=== PATIENT | male | born 1975 | race Hispanic/Latino ===

== ENCOUNTER 2016-11-05 07:18 | Emergency (ER) | payer BC, OTHER ==
[2016-11-05] MEDS ORDERED: Lidocaine 1% 20 ML MDV ONE (07:35)
[2016-11-05] MEDS ORDERED: Adacel (T-DAP) 0.5 ML VIAL ONE (07:35)
[2016-11-05] MEDS ORDERED: Cephalexin 500 MG CAP ONE (08:24)
[2016-11-05] MEDS ORDERED: Ibuprofen 800 MG TAB ONE (08:24)
[2016-11-05] MEDS ORDERED: Sodium Chloride Irrig Solution 250 ML BOT ONE (08:24)
[2016-11-05] MEDS ORDERED: Triple Antibiotic Oint 1 GM Packet ONE (08:46)
--- NOTE | 2016-11-05 08:59 | ERRECORD ---
[facility] EMERGENCY RECORD HPI LACERATION (08:02 ABUS) CHIEF COMPLAINT: Patient presents for evaluation of laceration to finger, on the left, 0-1.5cm in length, 3rd and 4th. HISTORIAN: History provided by patient, 41 yr old M with finger injury while work (sheet metal fell and hit his fingers giving him a cut). Unsure about tetanus. Can feel his finger and flex and extend it. MECHANISM OF INJURY: Mechanism of injury: Blunt trauma, by direct blow, No alcohol use associated with this incident, No drug use associated with this incident, No domestic violence associated with this incident. LOCATION: Symptoms are localized, most severe to 3rd and 4th fingers. QUALITY: Laceration quality straight, Pain is dull in nature, described as aching. SEVERITY: Currently symptoms are moderate. TIME COURSE: There has been no change in the patient's symptoms over time, are constant. ASSOCIATED WITH: No associated symptoms. EXACERBATED BY: Patient's condition exacerbated by nothing. RELIEVED BY: Patient's condition relieved by nothing. TETANUS: Tetanus status not up to date, tetanus immunization ordered. ROS (08:04 ABUS) CONSTITUTIONAL: Negative constitutional review of systems, Historian denies chills, denies fever. ENT: Negative ears, nose, throat review of systems, Historian denies rhinorrhea, denies sore throat. CARDIOVASCULAR: Negative cardiovascular review of systems, Historian denies chest pain, denies palpitations. RESPIRATORY: Negative respiratory review of systems, Historian denies cough, denies shortness of breath. GI: Negative gastrointestinal review of systems, Historian denies abdominal pain, denies constipation, denies diarrhea, denies nausea, denies vomiting. MUSCULOSKELETAL: Negative musculoskeletal review of systems, Historian denies back pain, denies fall, denies injury, denies neck pain. SKIN: Laceration to the 3rd and 4th finger no active bleeding, No tendon exposure or bone exposure. 3rd finger cut is skin avulsion only. 4th finger laceration extends to dermis., . NEUROLOGIC: Negative neurologic review of systems, Historian denies headache. PAST MEDICAL HISTORY (07:42 JPER) MEDICAL HISTORY: No past medical history, No past medical history. MALE SURGICAL HISTORY: Patient has no surgical history, Patient has no surgical history. &a-1R&a+25V*p+0X*[id number]*c202B*c15G*c2P*p-0X&a-25V&a+1R Name: Preethi Wilder : 1975 M41 MedRec: [id number] AcctNum: [id number] Prepared: SatNov 05, 2016 08:57 by Interface Page 1 of 3 pMD [facility] EMERGENCY RECORD PSYCHIATRIC HISTORY: Notes: DENIES, Notes: DENIES. SOCIAL HISTORY: Social History includes VERIFIED 11-05-16, Patient drinks socially, Patient denies drug use, Patient has no smoking history. KNOWN ALLERGIES No Known Drug Allergies CURRENT MEDICATIONS (07:42 JPER) None VITAL SIGNS (07:40 JPER) VITAL SIGNS: BP: 115/75, Pulse: 67, Resp: 14, Temp: 98 (Oral), O2 sat: 97 on Room Air, Time: 11/05/2016 07:40. PHYSICAL EXAM (08:04 ABUS) CONSTITUTIONAL: Vital signs reviewed, Patient afebrile, Pulse normal, Blood pressure normal, Respiratory rate normal, Patient appears non toxic, Patient appears pain free, Patient alert and oriented to person, place and time. NECK: Neck exam normal, Neck exam included findings of normal range of motion, Trachea midline, no meningeal signs, no cervical adenopathy, no tenderness. RESPIRATORY CHEST: Respiratory and chest exam normal, Respiratory exam included findings of no respiratory distress, Breath sounds clear. CARDIOVASCULAR: Cardiovascular assessment normal, Cardiovascular exam included findings of heart rate regular rate and rhythm, Heart sounds normal. ABDOMEN MALE: Abdominal exam included findings of abdomen nontender, Bowel sounds normal, no distension, no mass, no pulsatile masses, no peritoneal signs, no rigidity, no guarding, no rebound, Rovsing's sign absent. BACK: Back exam normal, Back exam included findings of normal inspection, range of motion normal, no tenderness. NEURO: Neuro exam normal, Neuro exam findings include patient oriented to person, place and time, Speech normal, Gait normal. SKIN: Skin exam included findings of skin warm, dry, and normal in color, no rash, Laceration to the 3rd and 4th finger no active bleeding, No tendon exposure or bone exposure. 3rd finger cut is skin avulsion only. 4th finger laceration extends to dermis., . RADIOLOGYINTERPRETATION (08:18 ABUS) UPPER EXTERMITIES: Radiological interpretation of, the left fingers shows, finger negative, no fractures, no dislocations, no foreign body, no bony lesions, no degenerative joint disease, no soft tissue swelling. CONFIGURATION MANAGEMENT ADMINISTRATOR: Preliminary review of x-rays by, ED Physician, &a-1R&a+25V*p+0X*[id number]*c202B*c15G*c2P*p-0X&a-25V&a+1R Name: Preethi Wilder : 1975 M41 MedRec: [id number] AcctNum: [id number] Prepared: SatNov 05, 2016 08:57 by Interface Page 2 of 3 pMD [facility] EMERGENCY RECORD Radiologist. MEDICATION ADMINISTRATION SUMMARY Drug Name: Keflex, Dose Ordered: 500 mg, Route: Oral, Status: Given, Time: 08:21 11/05/2016, Drug Name: ibuprofen, Dose Ordered: 800 mg, Route: Oral, Status: Given, Time: 08:21 11/05/2016, Drug Name: *Adacel(Tdap Adolesn/Adult)(PF), Dose Ordered: 0.5 mL, Route: Intramuscular, Status: Given, Time: 08:03 11/05/2016, *Additional information available in notes, Detailed record available in Medication Service section. DOCTOR NOTES (08:06 ABUS) TEXT: 41 yr old M with finger injury while work (sheet metal fell and hit his fingers giving him a cut). Unsure about tetanus. Can feel his finger and flex and extend it. Exam: Laceration to the 3rd and 4th finger no active bleeding, No tendon exposure or bone exposure. 3rd finger cut is skin avulsion only. 4th finger laceration extends to dermis. DDX: soft tissue injury, laceration Plan: Digital blocks to the 3rd and 4th fingers. Cleaned with water and scrubed with chlorhexidine, xray to r/o fb present and sutured. Dc on abx, counseling of daily wound care and return precautions with follow up in 5-7 days to have sutures removed. PROBLEM LIST No recorded problems DIAGNOSIS (08:50 ABUS) FINAL: PRIMARY: laceration. PRESCRIPTION (08:49 ABUS) Keflex: CAPSULE : 500 mg : ORAL : Quantity: 1 Unit: cap(s) Route: ORAL Schedule: 4 times a day Dispense: 28 Unit: cap(s) May substitute. Refills: No Refills . NOTES: No Refills. traMADol: TABLET : 50 mg : ORAL : Quantity: 1 Unit: tab(s) Route: ORAL Schedule: every 6 hours PRN Dispense: 12 Unit: tab(s) May substitute. Refills: No Refills . NOTES: No Refills. DISPOSITION (08:50 ABUS) PATIENT: Disposition Type: Discharge, Disposition: *Discharge Home, Condition: Good. Dang: ABUS=MD Estefania, Bimal JPER=RACHEL Nj, Pamela &a-1R&a+25V*p+0X*[id number]*c202B*c15G*c2P*p-0X&a-25V&a+1R Name: Preethi Wilder : 1975 M41 MedRec: [id number] AcctNum: [id number] Prepared: Kiki Nov 05, 2016 08:57 by Interface Page 3 of 3 pMD MTDD
--- NOTE | 2016-11-05 09:02 | ERRECORD ---
[facility] EMERGENCY RECORD HPI LACERATION (08:02 ABUS) CHIEF COMPLAINT: Patient presents for evaluation of laceration to finger, on the left, 0-1.5cm in length, 3rd and 4th. HISTORIAN: History provided by patient, 41 yr old M with finger injury while work (sheet metal fell and hit his fingers giving him a cut). Unsure about tetanus. Can feel his finger and flex and extend it. MECHANISM OF INJURY: Mechanism of injury: Blunt trauma, by direct blow, No alcohol use associated with this incident, No drug use associated with this incident, No domestic violence associated with this incident. LOCATION: Symptoms are localized, most severe to 3rd and 4th fingers. QUALITY: Laceration quality straight, Pain is dull in nature, described as aching. SEVERITY: Currently symptoms are moderate. TIME COURSE: There has been no change in the patient's symptoms over time, are constant. ASSOCIATED WITH: No associated symptoms. EXACERBATED BY: Patient's condition exacerbated by nothing. RELIEVED BY: Patient's condition relieved by nothing. TETANUS: Tetanus status not up to date, tetanus immunization ordered. ROS (08:04 ABUS) CONSTITUTIONAL: Negative constitutional review of systems, Historian denies chills, denies fever. ENT: Negative ears, nose, throat review of systems, Historian denies rhinorrhea, denies sore throat. CARDIOVASCULAR: Negative cardiovascular review of systems, Historian denies chest pain, denies palpitations. RESPIRATORY: Negative respiratory review of systems, Historian denies cough, denies shortness of breath. GI: Negative gastrointestinal review of systems, Historian denies abdominal pain, denies constipation, denies diarrhea, denies nausea, denies vomiting. MUSCULOSKELETAL: Negative musculoskeletal review of systems, Historian denies back pain, denies fall, denies injury, denies neck pain. SKIN: Laceration to the 3rd and 4th finger no active bleeding, No tendon exposure or bone exposure. 3rd finger cut is skin avulsion only. 4th finger laceration extends to dermis., . NEUROLOGIC: Negative neurologic review of systems, Historian denies headache. PAST MEDICAL HISTORY (07:42 JPER) MEDICAL HISTORY: No past medical history, No past medical history. MALE SURGICAL HISTORY: Patient has no surgical history, Patient has no surgical history. &a-1R&a+25V*p+0X*[id number]*c202B*c15G*c2P*p-0X&a-25V&a+1R Name: Preethi Wilder : 1975 M41 MedRec: [id number] AcctNum: [id number] Prepared: SatNov 05, 2016 14:02 by Interface Page 1 of 4 pMD [facility] EMERGENCY RECORD PSYCHIATRIC HISTORY: Notes: DENIES, Notes: DENIES. SOCIAL HISTORY: Social History includes VERIFIED 11-05-16, Patient drinks socially, Patient denies drug use, Patient has no smoking history. KNOWN ALLERGIES No Known Drug Allergies CURRENT MEDICATIONS (07:42 JPER) None VITAL SIGNS VITAL SIGNS: BP: 115/75, Pulse: 67, Resp: 14, Temp: 98 (Oral), O2 sat: 97 on Room Air, Time: 11/05/2016 07:40. (07:40 JPER) BP: 118/75, Pulse: 66, Resp: 16, Temp: 98.2, O2 sat: 98 on RA, Time: 11/05/2016 09:05. (09:05 JPER) PHYSICAL EXAM (08:04 ABUS) CONSTITUTIONAL: Vital signs reviewed, Patient afebrile, Pulse normal, Blood pressure normal, Respiratory rate normal, Patient appears non toxic, Patient appears pain free, Patient alert and oriented to person, place and time. NECK: Neck exam normal, Neck exam included findings of normal range of motion, Trachea midline, no meningeal signs, no cervical adenopathy, no tenderness. RESPIRATORY CHEST: Respiratory and chest exam normal, Respiratory exam included findings of no respiratory distress, Breath sounds clear. CARDIOVASCULAR: Cardiovascular assessment normal, Cardiovascular exam included findings of heart rate regular rate and rhythm, Heart sounds normal. ABDOMEN MALE: Abdominal exam included findings of abdomen nontender, Bowel sounds normal, no distension, no mass, no pulsatile masses, no peritoneal signs, no rigidity, no guarding, no rebound, Rovsing's sign absent. BACK: Back exam normal, Back exam included findings of normal inspection, range of motion normal, no tenderness. NEURO: Neuro exam normal, Neuro exam findings include patient oriented to person, place and time, Speech normal, Gait normal. SKIN: Skin exam included findings of skin warm, dry, and normal in color, no rash, Laceration to the 3rd and 4th finger no active bleeding, No tendon exposure or bone exposure. 3rd finger cut is skin avulsion only. 4th finger laceration extends to dermis., . RADIOLOGYINTERPRETATION (08:18 ABUS) UPPER EXTERMITIES: Radiological interpretation of, the left fingers shows, finger negative, no fractures, no dislocations, no foreign body, no bony lesions, no degenerative joint disease, no soft &a-1R&a+25V*p+0X*f0615D*c202B*c15G*c2P*p-0X&a-25V&a+1R Name: Preethi Wilder : 1975 M41 MedRec: [id number] AcctNum: [id number] Prepared: SatNov 05, 2016 14:02 by Interface Page 2 of 4 pMD [facility] EMERGENCY RECORD tissue swelling. FIELD ADJUSTER: Preliminary review of x-rays by, ED Physician, Radiologist. MEDICATION ADMINISTRATION SUMMARY Drug Name: Keflex, Dose Ordered: 500 mg, Route: Oral, Status: Given, Time: 08:21 11/05/2016, Drug Name: ibuprofen, Dose Ordered: 800 mg, Route: Oral, Status: Given, Time: 08:21 11/05/2016, Drug Name: *Adacel(Tdap Adolesn/Adult)(PF), Dose Ordered: 0.5 mL, Route: Intramuscular, Status: Given, Time: 08:03 11/05/2016, *Additional information available in notes, Detailed record available in Medication Service section. DOCTOR NOTES (08:06 ABUS) TEXT: 41 yr old M with finger injury while work (sheet metal fell and hit his fingers giving him a cut). Unsure about tetanus. Can feel his finger and flex and extend it. Exam: Laceration to the 3rd and 4th finger no active bleeding, No tendon exposure or bone exposure. 3rd finger cut is skin avulsion only. 4th finger laceration extends to dermis. DDX: soft tissue injury, laceration Plan: Digital blocks to the 3rd and 4th fingers. Cleaned with water and scrubed with chlorhexidine, xray to r/o fb present and sutured. Dc on abx, counseling of daily wound care and return precautions with follow up in 5-7 days to have sutures removed. PROBLEM LIST No recorded problems DIAGNOSIS (08:50 ABUS) FINAL: PRIMARY: laceration. PRESCRIPTION (08:49 ABUS) Keflex: CAPSULE : 500 mg : ORAL : Quantity: 1 Unit: cap(s) Route: ORAL Schedule: 4 times a day Dispense: 28 Unit: cap(s) May substitute. Refills: No Refills . NOTES: No Refills. traMADol: TABLET : 50 mg : ORAL : Quantity: 1 Unit: tab(s) Route: ORAL Schedule: every 6 hours PRN Dispense: 12 Unit: tab(s) May substitute. Refills: No Refills . NOTES: No Refills. DISPOSITION PATIENT: Disposition Type: Discharge, Disposition: *Discharge Home, Condition: Good. (08:50 ABUS) Patient left the department. (09:10 RICCARDO) &a-1R&a+25V*p+0X*j1093M*c202B*c15G*c2P*p-0X&a-25V&a+1R Name: Preethi Wilder : 1975 1 MedRec: [id number] AcctNum: [id number] Prepared: SatNov 05, 2016 14:02 by Interface Page 3 of 4 pMD [facility] EMERGENCY RECORD Dang: KALI=MD Estefania, Bimal GU=RACHEL Nj, Pamela &a-1R&a+25V*p+0X*[id number]*c202B*c15G*c2P*p-0X&a-25V&a+1R Name: Preethi Wilder : 1975 M41 MedRec: [id number] AcctNum: [id number] Prepared: SatNov 05, 2016 14:02 by Interface Page 4 of 4 pMD [facility]
--- NOTE | 2016-11-05 09:05 | PICIS ---
[facility] EMERGENCY RECORD TRIAGE (07:42 JPER) PATIENT: NAME: Preethi Wilder, AGE: 41, GENDER: male, : Sun 1975, TIME OF GREET: SatNov 05, 2016 07:18, PREFERRED LANGUAGE: Moldovan, RACE: or , ETHNICITY: or , ECODE BILLING MAP: [facility], SSN: [id number], Zip Code: [address], KG WEIGHT: [phone], PHONE: , , , PERSON ID: [id number], PCP: no pcp. (07:42 JPER) COMPLAINT: LT HAND CUT. (07:42 JPER) ADMISSION: URGENCY: 4 Non Urgent, ADMISSION SOURCE: Work, TRANSPORT: Walk-in, BED: ED -01. (07:42 JPER) ASSESSMENT: Assessment: FLAP TYPE LAC TO LEFT RING FINGER. (07:42 JPER) PAIN: No complaint of pain. (07:42 JPER) IMMUNIZATIONS: Flu vaccine not up to date, Tetanus not up to date, Pneumococcal vaccine not up to date. (07:42 JPER) SIRS SCORING: Heart Rate 55-109 (0), Temp range 96.8-101.1 (0), respiratory rate 12-24 (0), Mental Status altered: no (0). (07:42 JPER) TRIAGE SCREENING: Patient denies suicidal ideation, Patient denies presence of domestic violence. (07:42 JPER) PROVIDERS: TRIAGE NURSE: Pamela Nj RN. (07:42 JPER) VITAL SIGNS: BP 115/75, Pulse 67, Resp 14, Temp 98, (Oral), O2 Sat 97, on Room Air, Time 11/05/2016 07:40. (07:40 JPER) PREVIOUS VISIT ALLERGIES: No Known Drug Allergies. (07:42 JPER) KNOWN ALLERGIES No Known Drug Allergies CURRENT MEDICATIONS (07:42 JPER) None VITAL SIGNS VITAL SIGNS: BP: 115/75, Pulse: 67, Resp: 14, Temp: 98 (Oral), O2 sat: 97 on Room Air, Time: 11/05/2016 07:40. (07:40 JPER) BP: 118/75, Pulse: 66, Resp: 16, Temp: 98.2, O2 sat: 98 on RA, Time: 11/05/2016 09:05. (09:05 JPER) NURSING ASSESSMENT: SKIN (07:43 JPER) CONSTITUTIONAL: Patient arrives ambulatory, Gait steady, History obtained from patient, Patient appears comfortable, Patient cooperative, Patient alert, Oriented to person, place and time, Skin warm, Skin dry, Skin normal in color, Mucous membranes pink, Mucous membranes moist, Patient is well-groomed, Patient complains of LEFT RING FINGERTIP LAC. PAIN: SORENESS. SKIN: Skin assessment findings include skin warm, Skin dry, Skin normal in color, Inspection findings include laceration, to LEFT RING FINGERTIP, length (cm) FLAP TYPE, &a-1R&a+25V*p+0X*p3622X*c202B*c15G*c2P*p-0X&a-25V&a+1R Name: Preethi Wilder : 1975 M41 MedRec: [id number] AcctNum: [id number] Prepared: SatNov 05, 2016 14:08 by Interface Page 1 of 7 pMD [facility] EMERGENCY RECORD bleeding controlled. NOTES: Emotional support needed and given, Notes: SUPERFICIAL FLAP TYPE INJURY NOTED TO LEFT LONG FINGERTIP. SAFETY: Side rails up, Cart/Stretcher in lowest position, Family at bedside, Call light within reach, Hospital ID band on. NURSING PROCEDURE: DISCHARGE NOTE (09:05 JPER) DISCHARGE: Patient discharged to home, ambulating without assistance, family driving, accompanied by other family member, Summary of Care printed/ provided, Patient requested and was provided an electronic copy of Discharge Instructions, Transition record given to patient, Discharge instructions given to patient, Prescriptions given and instructions on side effects given, Above person(s) verbalized understanding of discharge instructions and follow-up care, Patient treated and evaluated by physician. BELONGINGS: Belongings remain with patient, Valuables remain with patient. NOTES: Emotional support needed and given. VITAL SIGNS: BP: 118, / 75, Pulse: 66, Resp: 16, Temp: 98.2, O2 sat: 98, on: RA. NURSING PROCEDURE: WOUND CARE PATIENT IDENTIFIER: Patient actively involved in identification process, Patient's identity verified by patient stating name, Patient's identity verified by hospital ID bracelet. (08:51 ABUS) Patient's identity verified by patient stating name. (08:55 JPER) TIMEOUT: Prior to procedure, correct patient verified by, Correct procedure verified, Correct site verified, Correct equipment utilized, Timeout not performed due to emergent nature of procedure, Physician performing procedure Dr. Urena. (08:51 ABUS) WOUND CARE: Wound care indicated for wound debridement and cleansing, Wound care indicated for preparing wound for repair, Wound care indicated to promote healing, Cause of wound: Blunt injury, Local infiltration with, 1% lidocaine without epinephrine, 5 mL used, Wound irrigated with 500 mL of normal saline, Wound cleansed with Hibiclens, by Estefania, Wound repaired with sutures, by Estefania, using 1 pack of suture, 5 sutures; simple interrupted using 4.0 nylon;, with debridement of skin, partial thickness. (08:51 ABUS) Wound cleansed with Betadine, by DR URENA, Wound repaired with sutures, by DR URENA, using 1 pack of suture. (08:55 JPER) FOLLOW-UP: After procedure, simple dressing applied, using 4x4 dressing, After procedure, on a scale 0-10 patient rates pain as 2, After procedure, capillary refill less than 2 seconds, After procedure, distal circulation intact, After procedure, distal motor intact, After procedure, distal sensation intact, After procedure, distal pulses present. (08:51 ABUS) After procedure, simple dressing applied, using adaptic dressing, using tube gauze dressing. (08:55 JPER) NOTES: Emotional support needed and given, Patient tolerated &a-1R&a+25V*p+0X*o6983H*c202B*c15G*c2P*p-0X&a-25V&a+1R Name: Preethi Wilder : 1975 M41 MedRec: [id number] AcctNum: [id number] Prepared: SatNov 05, 2016 14:08 by Interface Page 2 of 7 pMD [facility] EMERGENCY RECORD procedure well. (08:51 ABUS) ORDER DETAILS Order Name: chart element #1, Status: Active, Time: 08:51 11/05/2016, User: System, - Ordered for: MD Urena Anthony, - Entered by: MD Urena Anthony - [facility] Nov 05, 2016 08:51, - Quantity: 1, Order Name: chart element #4, Status: Active, Time: 08:51 11/05/2016, User: System, - Ordered for: MD Urena Anthony, - Entered by: MD Urena Anthony - [facility] Nov 05, 2016 08:51, - Quantity: 1, Order Name: XR Finger(s) Lt Min 2 View, Status: Active, Time: 08:01 11/05/2016, User: ABUS, - Ordered for: MD Urena Anthony, - Entered by: MD Urena Anthony - [facility] Nov 05, 2016 08:01, - Quantity: 1. MEDICATION ADMINISTRATION SUMMARY Drug Name: Keflex, Dose Ordered: 500 mg, Route: Oral, Status: Given, Time: 08:21 11/05/2016, Drug Name: ibuprofen, Dose Ordered: 800 mg, Route: Oral, Status: Given, Time: 08:21 11/05/2016, Drug Name: *Adacel(Tdap Adolesn/Adult)(PF), Dose Ordered: 0.5 mL, Route: Intramuscular, Status: Given, Time: 08:03 11/05/2016, *Additional information available in notes, Detailed record available in Medication Service section. MEDICATION SERVICE Adacel(Tdap Adolesn/Adult)(PF): Order: Adacel(Tdap Adolesn/Adult)(PF) (diphth,pertuss(acell),tet vac/preservative free) - Dose: 0.5 mL : Intramuscular Schedule: Now Notes: Read back and verified, Verbal Order Ordered by: Bimal Urena MD Entered by: Pamela Nj RN SatNov 05, 2016 08:03 Documented as given by: Pamela Nj RN SatNov 05, 2016 08:03 Patient, Medication, Dose, Route and Time verified prior to administration. IM immunization, Amount given: 0.5ML, Administration of this medication is documented elsewhere in chart, Medication administered to left deltoid, Vaccination information sheet given to patient, price changer: [employer], lot number: [id number], expiration: 02/28/19, Administered by JUNAID RAMOS, Co-signed by: Bimal Urena MD SatNov 05, 2016 08:09. ibuprofen: Order: ibuprofen - Dose: 800 mg : Oral Schedule: Now &a-1R&a+25V*p+0X*u0812R*c202B*c15G*c2P*p-0X&a-25V&a+1R Name: Preethi Wilder : 1975 M41 MedRec: [id number] AcctNum: [id number] Prepared: SatNov 05, 2016 14:08 by Interface Page 3 of 7 pMD [facility] EMERGENCY RECORD Ordered by: Bimal Urena MD Entered by: Bimal Urena MD SatNov 05, 2016 08:09 Documented as given by: Pamela Nj RN SatNov 05, 2016 08:21 Patient, Medication, Dose, Route and Time verified prior to administration. Amount given: 800MG, Site: Medication administered P.O., Correct patient, time, route, dose and medication confirmed prior to administration, Patient advised of actions and side-effects prior to administration, Allergies confirmed and medications reviewed prior to administration. Keflex: Order: Keflex (cephalexin monohydrate) - Dose: 500 mg : Oral Schedule: Now Ordered by: Bimal Urena MD Entered by: Bimal Urena MD SatNov 05, 2016 08:09 Documented as given by: Pamela Nj RN SatNov 05, 2016 08:21 Patient, Medication, Dose, Route and Time verified prior to administration. Amount given: 500MG, Site: Medication administered P.O., Correct patient, time, route, dose and medication confirmed prior to administration, Patient advised of actions and side-effects prior to administration, Allergies confirmed and medications reviewed prior to administration, Administered by JUNAID RAMOS. HPI LACERATION (08:02 ABUS) CHIEF COMPLAINT: Patient presents for evaluation of laceration to finger, on the left, 0-1.5cm in length, 3rd and 4th. HISTORIAN: History provided by patient, 41 yr old M with finger injury while work (sheet metal fell and hit his fingers giving him a cut). Unsure about tetanus. Can feel his finger and flex and extend it. MECHANISM OF INJURY: Mechanism of injury: Blunt trauma, by direct blow, No alcohol use associated with this incident, No drug use associated with this incident, No domestic violence associated with this incident. LOCATION: Symptoms are localized, most severe to 3rd and 4th fingers. QUALITY: Laceration quality straight, Pain is dull in nature, described as aching. SEVERITY: Currently symptoms are moderate. TIME COURSE: There has been no change in the patient's symptoms over time, are constant. ASSOCIATED WITH: No associated symptoms. EXACERBATED BY: Patient's condition exacerbated by nothing. RELIEVED BY: Patient's condition relieved by nothing. TETANUS: Tetanus status not up to date, tetanus immunization ordered. ROS (08:04 ABUS) CONSTITUTIONAL: Negative constitutional review of systems, Historian denies chills, denies fever. &a-1R&a+25V*p+0X*b5501Q*c202B*c15G*c2P*p-0X&a-25V&a+1R Name: Preethi Wilder : 1975 M41 MedRec: [id number] AcctNum: [id number] Prepared: SatNov 05, 2016 14:08 by Interface Page 4 of 7 pMD [facility] EMERGENCY RECORD ENT: Negative ears, nose, throat review of systems, Historian denies rhinorrhea, denies sore throat. CARDIOVASCULAR: Negative cardiovascular review of systems, Historian denies chest pain, denies palpitations. RESPIRATORY: Negative respiratory review of systems, Historian denies cough, denies shortness of breath. GI: Negative gastrointestinal review of systems, Historian denies abdominal pain, denies constipation, denies diarrhea, denies nausea, denies vomiting. MUSCULOSKELETAL: Negative musculoskeletal review of systems, Historian denies back pain, denies fall, denies injury, denies neck pain. SKIN: Laceration to the 3rd and 4th finger no active bleeding, No tendon exposure or bone exposure. 3rd finger cut is skin avulsion only. 4th finger laceration extends to dermis., . NEUROLOGIC: Negative neurologic review of systems, Historian denies headache. PAST MEDICAL HISTORY (07:42 JPER) MEDICAL HISTORY: No past medical history, No past medical history. MALE SURGICAL HISTORY: Patient has no surgical history, Patient has no surgical history. PSYCHIATRIC HISTORY: Notes: DENIES, Notes: DENIES. SOCIAL HISTORY: Social History includes VERIFIED 17, Patient drinks socially, Patient denies drug use, Patient has no smoking history. PHYSICAL EXAM (08:04 ABUS) CONSTITUTIONAL: Vital signs reviewed, Patient afebrile, Pulse normal, Blood pressure normal, Respiratory rate normal, Patient appears non toxic, Patient appears pain free, Patient alert and oriented to person, place and time. NECK: Neck exam normal, Neck exam included findings of normal range of motion, Trachea midline, no meningeal signs, no cervical adenopathy, no tenderness. RESPIRATORY CHEST: Respiratory and chest exam normal, Respiratory exam included findings of no respiratory distress, Breath sounds clear. CARDIOVASCULAR: Cardiovascular assessment normal, Cardiovascular exam included findings of heart rate regular rate and rhythm, Heart sounds normal. ABDOMEN MALE: Abdominal exam included findings of abdomen nontender, Bowel sounds normal, no distension, no mass, no pulsatile masses, no peritoneal signs, no rigidity, no guarding, no rebound, Rovsing's sign absent. BACK: Back exam normal, Back exam included findings of normal inspection, range of motion normal, no tenderness. &a-1R&a+25V*p+0X*c1151N*c202B*c15G*c2P*p-0X&a-25V&a+1R Name: Preethi Wilder : 1975 M41 MedRec: [id number] AcctNum: [id number] Prepared: SatNov 05, 2016 14:08 by Interface Page 5 of 7 D [facility] EMERGENCY RECORD NEURO: Neuro exam normal, Neuro exam findings include patient oriented to person, place and time, Speech normal, Gait normal. SKIN: Skin exam included findings of skin warm, dry, and normal in color, no rash, Laceration to the 3rd and 4th finger no active bleeding, No tendon exposure or bone exposure. 3rd finger cut is skin avulsion only. 4th finger laceration extends to dermis., . EVENTS TRANSFER: Triage to Emergency Main ED -01. (SatNov 05, 2016 07:42 JPER) Removed from Emergency Main ED -01. (09:10 JPER) RADIOLOGYINTERPRETATION (08:18 ABUS) UPPER EXTERMITIES: Radiological interpretation of, the left fingers shows, finger negative, no fractures, no dislocations, no foreign body, no bony lesions, no degenerative joint disease, no soft tissue swelling. HOSPITAL TECHNICIAN: Preliminary review of x-rays by, ED Physician, Radiologist. DOCTOR NOTES (08:06 ABUS) TEXT: 41 yr old M with finger injury while work (sheet metal fell and hit his fingers giving him a cut). Unsure about tetanus. Can feel his finger and flex and extend it. Exam: Laceration to the 3rd and 4th finger no active bleeding, No tendon exposure or bone exposure. 3rd finger cut is skin avulsion only. 4th finger laceration extends to dermis. DDX: soft tissue injury, laceration Plan: Digital blocks to the 3rd and 4th fingers. Cleaned with water and scrubed with chlorhexidine, xray to r/o fb present and sutured. Dc on abx, counseling of daily wound care and return precautions with follow up in 5-7 days to have sutures removed. PROBLEM LIST No recorded problems DIAGNOSIS (08:50 ABUS) FINAL: PRIMARY: laceration. DISPOSITION PATIENT: Disposition Type: Discharge, Disposition: *Discharge Home, Condition: Good. (08:50 ABUS) Patient left the department. (09:10 JPER) INSTRUCTION (08:51 ABUS) DISCHARGE: FINGER LACERATION. FOLLOWUP: [facility], /[facility], [address] [place] [address], , Follow up with Primary Care Physician in 2-3 days. &a-1R&a+25V*p+0X*k7451L*c202B*c15G*c2P*p-0X&a-25V&a+1R Name: Preethi Wilder : 1975 M41 MedRec: [id number] AcctNum: [id number] Prepared: SatNov 05, 2016 14:08 by Interface Page 6 of 7 pMD [facility] EMERGENCY RECORD SPECIAL: As discussed in the ED, please keep any upcoming appointments with your primary doctor for a follow up evaluation or ongoing medical care. Please come back if you start to have fever, vomiting, redness, swelling, or any symptoms that concern you. PRESCRIPTION (08:49 ABUS) Keflex: CAPSULE : 500 mg : ORAL : Quantity: 1 Unit: cap(s) Route: ORAL Schedule: 4 times a day Dispense: 28 Unit: cap(s) May substitute. Refills: No Refills . NOTES: No Refills. traMADol: TABLET : 50 mg : ORAL : Quantity: 1 Unit: tab(s) Route: ORAL Schedule: every 6 hours PRN Dispense: 12 Unit: tab(s) May substitute. Refills: No Refills . NOTES: No Refills. IMAGING *DISCHARGE INSTRUCTIONS RECEIPT: Image captured from scanner. (09:06 JPER) *SUPPLY CHARGE SHEET: Image captured from scanner. (09:07 JPER) TETANUS CONSENT: Image captured from scanner. (09:07 JPER) ADMIN DIGITAL SIGNATURE: MD Urena Anthony. (08:53 ABUS) RACHEL Nj Jana. (09:09 JPER) MD Urena Anthony. (13:55 ABUS) Dang: ABUS=MD Urena Anthony JPER=RACHEL Nj Jana &a-1R&a+25V*p+0X*u2613V*c202B*c15G*c2P*p-0X&a-25V&a+1R Name: Preethi Wilder : 1975 M41 MedRec: [id number] AcctNum: [id number] Prepared: SatNov 05, 2016 14:08 by Interface Page 7 of 7 pMD MTDD
--- NOTE | 2016-11-05 09:32 | RAD ---
LEFT FINGER 2 VIEWS: HISTORY: Flap-type laceration of ring finger. COMPARISON: None. FINDINGS: There is soft tissue laceration of the ring finger left hand. There also appears to be a soft tissu e laceration of the distal phalanx of the middle finger. No acute fracture or malalignment. IMPRESSION: 1. Soft tissue lacerations of the tips of the ring and middle fingers. No underlying fracture or m alalignment. 2. Radiopaque material under the nail of the index finger. POS: [place]CHE[place]
== END 2016-11-05 09:05 | disposition home or self-care (01) ==
LOC: MADERS 07:18
DX: S61.215A Laceration without foreign body of left ring finger without damage to nail, initial encounter (principal); S61.213A Laceration without foreign body of left middle finger without damage to nail, initial encounter; X58.XXXA Exposure to other specified factors, initial encounter
CPT/HCPCS: 12001; 90471; 90715; J2001

== ENCOUNTER 2016-11-11 17:42 | Emergency (ER) | payer BC, OTHER ==
--- NOTE | 2016-11-11 19:06 | ERRECORD ---
[facility] EMERGENCY RECORD HPI WOUND CHECK (18:30 LLDO) CHIEF COMPLAINT: Patient presents for evaluation of suture removal leftfinger pad. 6 days. appears to be well healed w/o any evidence of infection. ROS CONSTITUTIONAL: pt has no c/o. (18:32 LLDO) EYES: Negative eye review of systems, Historian denies eye pain, denies eye redness, denies eye discharge. (18:33 LLDO) ENT: Negative ears, nose, throat review of systems, Historian denies otalgia, denies rhinorrhea, denies sinus pain, denies sore throat. (18:33 LLDO) MUSCULOSKELETAL: Negative musculoskeletal review of systems, Historian denies arthralgias, denies fall, denies injury, denies myalgias. (18:33 LLDO) NEUROLOGIC: Negative neurologic review of systems, Historian denies confusion, denies focal weakness, denies mental status changes, denies sensory changes. (18:33 LLDO) ALLERGIC/IMMUNOLOGIC: Normal allergy/immunologic system review, Historian denies eczema, denies environmental allergies, denies food allergies. (18:33 LLDO) PSYCHIATRIC: Negative psychiatric review of systems, Historian denies alcohol abuse, denies anxiety, denies depression, denies drug abuse, denies hallucinations. (18:33 LLDO) NOTES: All systems reviewed, negative except as described above. (18:32 LLDO) PAST MEDICAL HISTORY MEDICAL HISTORY: Flu vaccine not up to date, Tetanus immunization up to date, Pneumococcal vaccine not up to date, No past medical history, No past medical history. (18:06 CJEF) MALE SURGICAL HISTORY: Patient has no surgical history, Patient has no surgical history. (18:06 CJEF) PSYCHIATRIC HISTORY: Notes: DENIES, Notes: DENIES. (18:06 CJEF) SOCIAL HISTORY: Social History includes VERIFIED 17, Patient drinks socially, Patient denies drug use, Patient has no smoking history. (18:06 CJEF) NOTES: Nursing records reviewed, Agree with nursing records, Medication list reviewed. (18:33 LLDO) KNOWN ALLERGIES No Known Drug Allergies CURRENT MEDICATIONS (18:05 CJEF) Keflex: CAPSULE : Strength - 500 mg : ORAL Patient Dose: 1 cap(s) Oral 4 times a day. &a-1R&a+25V*p+0X*a2295G*c202B*c15G*c2P*p-0X&a-25V&a+1R Name: Preethi Wilder : 1975 M41 MedRec: [id number] AcctNum: [id number] Prepared: SatNov 12, 2016 06:07 by Interface Page 1 of 2 pMD [facility] EMERGENCY RECORD VITAL SIGNS (18:03 [facility]) VITAL SIGNS: BP: 130/74, Pulse: 93, Resp: 18, Temp: 98.4 (Oral), Pain: 0, O2 sat: 96 on Room Air, Time: 11/11/2016 18:03. PHYSICAL EXAM CONSTITUTIONAL: Vital signs reviewed, Patient afebrile, Pulse normal, Blood pressure normal, Respiratory rate normal, Patient appears non toxic, Patient appears pain free, Patient alert and oriented to person, place and time. (18:32 LLDO) HEAD: Head exam normal, Head exam included findings of head atraumatic, normocephalic. (18:33 LLDO) EYES: Eye exam normal, Eye exam included findings of eyelids normal to inspection, Pupils equally round and reactive to light, Extraocular muscles intact. (18:33 LLDO) ENT: ENT exam normal, Ear exam normal, Nose exam normal. (18:33 LLDO) NECK: Neck exam normal, Neck exam included findings of normal range of motion, Trachea midline, no meningeal signs, no tenderness. (18:33 LLDO) BACK: Back exam normal, Back exam included findings of normal inspection, range of motion normal. (18:33 LLDO) UPPER EXTREMITY: Upper extremity exam normal, Upper extremity exam included findings of inspection normal, Range of motion normal. (18:33 LLDO) LOWER EXTREMITY: Lower extremity exam normal, Lower extremity exam included findings of inspection normal, Range of motion normal. (18:33 LLDO) NEURO: Neuro exam normal, Neuro exam findings include patient oriented to person, place and time, Speech normal, [place] coma scale 15. (18:33 LLDO) SKIN: LAC(S) DESCRIBED ABOVE. (18:32 LLDO) PSYCHIATRIC: Psychiatric exam normal, Psychiatric exam included findings of patient oriented to person place and time, Normal affect, Judgment normal. (18:33 LLDO) PROBLEM LIST No recorded problems DIAGNOSIS (18:33 LLDO) FINAL: PRIMARY: suture removal. PRESCRIPTION No recorded prescriptions DISPOSITION PATIENT: Disposition Type: Discharge, Disposition: *Discharge Home. (18:33 NOLVIADO) Patient left the department. (18:41 SURESH) Dang: SURESH=RACHEL Lewis, Noemi DECKER=MD Lawson, Yusef &a-1R&a+25V*p+0X*p7886N*c202B*c15G*c2P*p-0X&a-25V&a+1R Name: Preethi Wilder : 1975 M41 MedRec: [id number] AcctNum: [id number] Prepared: SatNov 12, 2016 06:07 by Interface Page 2 of 2 pMD MTDD
--- NOTE | 2016-11-11 19:29 | PICIS ---
[facility] EMERGENCY RECORD TRIAGE ([place] Nov 11, 2016 18:05 CJEF) TRIAGE NOTES: PT REPORTS NEEDING STITCHES REMOVED FROM LEFT 4TH FINGER. PT REPORTS THAT A PIECE OF SHEET METAL SLICED HIS HAND ABOUT A WEEK AGO. ([place] Nov 11, 2016 18:05 CJEF) PATIENT: NAME: Preethi Wilder, AGE: 41, GENDER: male, : [place] 1975, TIME OF GREET: [place] Nov 11, 2016 17:42, PREFERRED LANGUAGE: Sinhala, ETHNICITY: or , ECODE BILLING MAP: [facility], SSN: [id number], Zip Code: [address], KG WEIGHT: 108.86, PHONE: , , , PERSON ID: [id number], PCP: NONE. ([place] Nov 11, 2016 18:05 CJEF) COMPLAINT: NEED STITCHES REMOVED. ([place] Nov 11, 2016 18:05 CJEF) ADMISSION: URGENCY: 4 Non Urgent, ADMISSION SOURCE: Home, TRANSPORT: Walk-in, BED: TRIAGE. ([place] Nov 11, 2016 18:05 CJEF) ASSESSMENT: Assessment: NEEDING STITCHES REMOVED. (18:06 CJEF) PAIN: No complaint of pain. (18:06 CJEF) IMMUNIZATIONS: Flu vaccine not up to date, Tetanus immunization up to date, Pneumococcal vaccine not up to date. (18:06 CJEF) SIRS SCORING: Heart Rate 55-109 (0), Temp range 96.8-101.1 (0), respiratory rate 12-24 (0), Mental Status altered: no (0), Infection or Suspected Infection: No. (18:06 CJEF) TRIAGE SCREENING: Patient denies suicidal ideation, Patient denies presence of domestic violence. (18:06 CJEF) PROVIDERS: TRIAGE NURSE: Noemi Lewis RN. ([place] Nov 11, 2016 18:05 CJEF) VITAL SIGNS: BP 130/74, Pulse 93, Resp 18, Temp 98.4, (Oral), Pain 0, O2 Sat 96, on Room Air, Time 11/11/2016 18:03. (18:03 CJEF) PREVIOUS VISIT ALLERGIES: No Known Drug Allergies. ([place] Nov 11, 2016 18:05 CJEF) No Known Drug Allergies. (18:06 CJEF) KNOWN ALLERGIES No Known Drug Allergies CURRENT MEDICATIONS (18:05 CJEF) Keflex: CAPSULE : Strength - 500 mg : ORAL Patient Dose: 1 cap(s) Oral 4 times a day. VITAL SIGNS (18:03 CJEF) VITAL SIGNS: BP: 130/74, Pulse: 93, Resp: 18, Temp: 98.4 (Oral), Pain: 0, O2 sat: 96 on Room Air, Time: 11/11/2016 18:03. NURSING ASSESSMENT: SKIN (18:10 CJEF) CONSTITUTIONAL: Complex assessment performed, Patient arrives ambulatory, Gait steady, History obtained from patient, Patient appears comfortable, Patient cooperative, Patient alert, Oriented to person, place and time, Skin warm, Skin dry, Skin normal in color, Mucous membranes pink, Mucous membranes moist, Patient is &a-1R&a+25V*p+0X*r5447R*c202B*c15G*c2P*p-0X&a-25V&a+1R Name: Preethi Wilder : 1975 M41 MedRec: [id number] AcctNum: [id number] Prepared: SatNov 12, 2016 06:07 by Interface Page 1 of [address] [facility] EMERGENCY RECORD well-groomed, PT REPORTS NEEDING STITCHES REMOVED FROM LEFT 4TH FINGER. PT REPORTS THAT A PIECE OF SHEET METAL SLICED HIS HAND ABOUT A WEEK AGO. PAIN: Patient rates pain as 0 out of 10. SKIN: Skin assessment findings include skin warm, Skin dry, Skin normal in color, Notes: STITCHES TO LEFT 4TH FINGER TIP. NOTES: Patient tolerated procedure well. SAFETY: Side rails up, Cart/Stretcher in lowest position, Family at bedside, Call light within reach, Hospital ID band on. NURSING PROCEDURE: DISCHARGE NOTE (18:40 CJ) DISCHARGE: Patient discharged to home, ambulating without assistance, family driving, accompanied by //partner, Summary of Care printed/ provided, Patient requested and was provided an electronic copy of Discharge Instructions, Transition record given to patient, Discharge instructions given to patient, Simple or moderate discharge teaching performed, Above person(s) verbalized understanding of discharge instructions and follow-up care, Patient treated and evaluated by physician. BELONGINGS: Belongings remain with patient. NOTES: Patient tolerated procedure well. SAFETY: Side rails up, Cart/Stretcher in lowest position, Family at bedside, Call light within reach, Hospital ID band on. NURSING PROCEDURE: WOUND CARE (18:38 [facility]) PATIENT IDENTIFIER: Patient actively involved in identification process, Patient's identity verified by patient stating name, Patient's identity verified by patient stating date. TIMEOUT: Prior to procedure, correct patient verified by, Correct procedure verified, Correct site verified, Correct equipment utilized. WOUND CARE: Last tetanus shot received less than 5 years ago, Notes: X5 STITCHES REMOVED AND X2 STERI STRIPS APPLIED TO FINGER. NOTES: Patient tolerated procedure well. SAFETY: Side rails up, Cart/Stretcher in lowest position, Family at bedside, Call light within reach, Hospital ID band on. ORDER DETAILS Order Name: chart element #1, Status: Active, Time: 18:38 11/11/2016, User: System, - Ordered for: MD Pathak Lloyd, - Entered by: RACHEL Lewis Cassie - Sun Nov 11, 2016 18:38, - Quantity: 1, Order Name: chart element #4, Status: Active, Time: 18:38 11/11/2016, User: System, - Ordered for: MD Pathak Lloyd, - Entered by: RACHEL Lewis Cassie - Sun Nov 11, 2016 18:38, - Quantity: 1. &a-1R&a+25V*p+0X*e8122Y*c202B*c15G*c2P*p-0X&a-25V&a+1R Name: Preethi Wilder : 1975 M41 MedRec: [id number] AcctNum: [id number] Prepared: SatNov 12, 2016 06:07 by Interface Page 2 of [address] [facility] EMERGENCY RECORD HPI WOUND CHECK (18:30 LLDO) CHIEF COMPLAINT: Patient presents for evaluation of suture removal leftfinger pad. 6 days. appears to be well healed w/o any evidence of infection. ROS CONSTITUTIONAL: pt has no c/o. (18:32 LLDO) EYES: Negative eye review of systems, Historian denies eye pain, denies eye redness, denies eye discharge. (18:33 LLDO) ENT: Negative ears, nose, throat review of systems, Historian denies otalgia, denies rhinorrhea, denies sinus pain, denies sore throat. (18:33 LLDO) MUSCULOSKELETAL: Negative musculoskeletal review of systems, Historian denies arthralgias, denies fall, denies injury, denies myalgias. (18:33 LLDO) NEUROLOGIC: Negative neurologic review of systems, Historian denies confusion, denies focal weakness, denies mental status changes, denies sensory changes. (18:33 LLDO) ALLERGIC/IMMUNOLOGIC: Normal allergy/immunologic system review, Historian denies eczema, denies environmental allergies, denies food allergies. (18:33 LLDO) PSYCHIATRIC: Negative psychiatric review of systems, Historian denies alcohol abuse, denies anxiety, denies depression, denies drug abuse, denies hallucinations. (18:33 LLDO) NOTES: All systems reviewed, negative except as described above. (18:32 LLDO) PAST MEDICAL HISTORY MEDICAL HISTORY: Flu vaccine not up to date, Tetanus immunization up to date, Pneumococcal vaccine not up to date, No past medical history, No past medical history. (18:06 CJEF) MALE SURGICAL HISTORY: Patient has no surgical history, Patient has no surgical history. (18:06 CJEF) PSYCHIATRIC HISTORY: Notes: DENIES, Notes: DENIES. (18:06 CJEF) SOCIAL HISTORY: Social History includes VERIFIED 16-17, Patient drinks socially, Patient denies drug use, Patient has no smoking history. (18:06 CJEF) NOTES: Nursing records reviewed, Agree with nursing records, Medication list reviewed. (18:33 LLDO) PHYSICAL EXAM CONSTITUTIONAL: Vital signs reviewed, Patient afebrile, Pulse normal, Blood pressure normal, Respiratory rate normal, Patient appears non toxic, Patient appears pain free, Patient alert and oriented to person, place and time. (18:32 LLDO) HEAD: Head exam normal, Head exam included findings of head atraumatic, normocephalic. (18:33 LLDO) &a-1R&a+25V*p+0X*x6770E*c202B*c15G*c2P*p-0X&a-25V&a+1R Name: Preethi Wilder : 1975 M41 MedRec: [id number] AcctNum: [id number] Prepared: SatNov 12, 2016 06:07 by Interface Page 3 of [address] [facility] EMERGENCY RECORD EYES: Eye exam normal, Eye exam included findings of eyelids normal to inspection, Pupils equally round and reactive to light, Extraocular muscles intact. (18:33 LLDO) ENT: ENT exam normal, Ear exam normal, Nose exam normal. (18:33 LLDO) NECK: Neck exam normal, Neck exam included findings of normal range of motion, Trachea midline, no meningeal signs, no tenderness. (18:33 LLDO) BACK: Back exam normal, Back exam included findings of normal inspection, range of motion normal. (18:33 LLDO) UPPER EXTREMITY: Upper extremity exam normal, Upper extremity exam included findings of inspection normal, Range of motion normal. (18:33 LLDO) LOWER EXTREMITY: Lower extremity exam normal, Lower extremity exam included findings of inspection normal, Range of motion normal. (18:33 LLDO) NEURO: Neuro exam normal, Neuro exam findings include patient oriented to person, place and time, Speech normal, Justin coma scale 15. (18:33 LLDO) SKIN: LAC(S) DESCRIBED ABOVE. (18:32 LLDO) PSYCHIATRIC: Psychiatric exam normal, Psychiatric exam included findings of patient oriented to person place and time, Normal affect, Judgment normal. (18:33 LLDO) EVENTS TRANSFER: Triage to Emergency Triage. (18:05 CJEF) Emergency Triage to Main ED -01. (18:06 CJEF) Removed from Emergency Main ED -01. (18:41 CJEF) SUTURE/STAPLE REMOVAL (18:34 LLDO) SUTURE/STAPLE REMOVAL: Side and/or site verified, Patient identification confirmed, Sterile procedures observed, Verbal consent obtained, Suture or staple removal indicated for scheduled removal, Suture(s) removed from laceration, to finger, There were no complications, Patient tolerated the procedure well, 5 sutures removed by nurse w/o difficulty under my supervision. PROBLEM LIST No recorded problems DIAGNOSIS (18:33 LLDO) FINAL: PRIMARY: suture removal. DISPOSITION PATIENT: Disposition Type: Discharge, Disposition: *Discharge Home. (18:33 LLDO) Patient left the department. (18:41 CJEF) INSTRUCTION (18:34 LLDO) DISCHARGE: SUTURE REMOVAL, NO COMPLICATION. &a-1R&a+25V*p+0X*z2295I*c202B*c15G*c2P*p-0X&a-25V&a+1R Name: Preethi Wilder : 1975 1 MedRec: [id number] AcctNum: [id number] Prepared: SatNov 12, 2016 06:07 by Interface Page 4 of [address] [facility] EMERGENCY RECORD FOLLOWUP: Follow up with Primary Care Physician as needed. SPECIAL: Follow-up with your PCP. PRESCRIPTION No recorded prescriptions IMAGING (18:43 [facility]) *DISCHARGE INSTRUCTIONS RECEIPT: Image captured from scanner. *SUPPLY CHARGE SHEET: Image captured from scanner. ADMIN DIGITAL SIGNATURE: MD Pathak Lloyd. (SatNov 12, 2016 05:41 LLDO) MD Pathak Lloyd. (SatNov 12, 2016 06:00 LLDO) Dang: CJDUNCAN=RACHEL Lewis Cassie LLDO=MD Pathak Lloyd &a-1R&a+25V*p+0X*t8078M*c202B*c15G*c2P*p-0X&a-25V&a+1R Name: Preethi Wilder : 1975 3 MedRec: [id number] AcctNum: [id number] Prepared: SatNov 12, 2016 06:07 by Interface Page 5 of [address] [facility] MEDICATION RECONCILIATION You were seen in the Emergency Department on: SatNov 11, 2016 KNOWN ALLERGIES No Known Drug Allergies HOME MEDICATIONS CONTINUE PRESCRIBED Keflex : CAPSULE : Strength - 500 mg : ORAL Continue as prescribed Patient had been takin cap(s) Oral 4 times a day. Notes from the emergency department Reviewed with family Reviewed with patient &a-1R&a+25V*p+0X*y5175G*c202B*c15G*c2P*p-0X&a-25V&a+1R Name: Preethi Wilder : 1975 M41 MedRec: [id number] AcctNum: [id number] Prepared: SatNov 12, 2016 06:07 by Interface pMD [facility]
== END 2016-11-11 18:41 | disposition home or self-care (01) ==
LOC: MADERS 17:42
DX: S61.215D Laceration without foreign body of left ring finger without damage to nail, subsequent encounter (principal); Z79.899 Other long term (current) drug therapy; X58.XXXD Exposure to other specified factors, subsequent encounter
CPT/HCPCS: 99281

== ENCOUNTER 2018-07-01 21:05 | Emergency (ER) | payer BC, OTHER ==
[2018-07-01] MEDS ORDERED: Ibuprofen 800 MG TAB ONE (21:21)
[2018-07-01] MEDS ORDERED: Ondansetron ODT 4 MG TAB ONE (21:22)
--- NOTE | 2018-07-01 23:03 | RAD ---
TWO VIEWS OF THE CHEST: 07/01/18 COMPARISON: 01/30/09 HISTORY: Fever and chills. FINDINGS: Two views of the chest show normal sized cardiomediastinal silhouette. There is no evidence of consol idation, mass, or pleural effusion. The bones are unremarkable. IMPRESSION: No evidence of acute cardiopulmonary disease. POS: [facility]
[2018-07-01 23:11] LABS: ALT (SGPT) 126 U/L (8-55); AST (SGOT) 173 U/L (5-34); Albumin 4.4 g/dL (3.5-5.0); Alkaline Phosphatase 116 U/L (40-150); Anion Gap 18 mmol/L (10-20); BUN (Urea Nitrogen) 18 mg/dL (8.9-20.6); Bilirubin, Total 0.6 mg/dL (0.2-1.2); Calc. Creatinine Clearance 0 mL/min (70-130); Calcium 9.2 mg/dL (7.8-10.44); Carbon Dioxide 21 mmol/L (22-29); Chloride 105 mmol/L (98-107); Estimated GFR-MDRD 87; Globulin 3.1 g/dL (2.4-3.5); Glucose 105 mg/dL (70-105); Lipase 11 U/L (8-78); Potassium 3.8 mmol/L (3.5-5.1); Protein, Total 7.5 g/dL (6.0-8.3); Sodium 140 mmol/L (136-145)
[2018-07-01 23:15] LABS: Bilirubin Negative (Negative); Blood, Urine Trace (Negative); Clarity Clear (Clear); Glucose, Urine (Dipstick) Negative (Negative); Leukocyte Negative (Negative); Nitrite Negative (Negative); Protein, Urine (Dipstick) Trace mg/dL (Neg-Trace); Specific Gravity, Urine 1.025 (1.005-1.030); Urobilinogen 0.2 mg/dL (0.2-1.0); pH, Urine 5.5 (5.0-9.0)
[2018-07-01 23:20] LABS: WBC/HPF 0-3 HPF (0-3)
[2018-07-01 23:22] LABS: #Lymphocytes 0.5 thou/uL (1.20-3.40); #Monocytes 0.5 thou/uL (0.11-0.59); #Neutrophils 8.7 thou/uL (1.40-6.50); %Basophils 0.5 % (0.0-1.0); %Eosinophils 0.3 % (0.0-10.0); %Lymphocytes 5.5 % (21.0-51.0); %Neutrophils 88.6 % (42.0-75.0); Hemoglobin 15.5 g/dL (14.0-18.0); Mean Corpuscular HGB CONC 32.8 g/dL (32.0-36.0); Mean Corpuscular Volume 91.6 fL (78.0-98.0); Mean Platelet Volume 9.5 fL (7.4-10.4); Platelet Count 180 thou/uL (130-400); RBC Distribution Width 11.9 % (11.5-14.5); Red Blood Cell (RBC) Count 5.17 mill/uL (4.70-6.10); White Blood Cell (WBC) Count 9.8 thou/uL (4.8-10.8)
== END 2018-07-02 01:43 | disposition home or self-care (01) ==
LOC: MADERS 21:05
DX: R50.9 Fever, unspecified (principal); R11.0 Nausea
CPT/HCPCS: 36415; 71046; 80053; 81003; 81015; 83605; 83690; 85025; 87040; 87081; 87430; 87804; 94760; Q0162